=== PATIENT | male | born 1955 | race Caucasian/White ===

== ENCOUNTER 2018-09-20 08:02 | Day surgery (SDC) | payer OTHER ==
[2018-09-13 12:53] VITALS: BMI 27.6
[2018-09-20 10:30] VITALS: TEMP 97.8
[2018-09-20 10:31] VITALS: BP 121/64; PULSE 68
== END 2018-09-20 10:39 | disposition home or self-care (01) ==
LOC: FASU-ENDO 08:02
PROVIDERS: ATTEND Internal Medicine Gastroenterology
PROC: 0DJD8ZZ Inspection of Lower Intestinal Tract, Via Natural or Artificial Opening Endoscopic (ICD-10-PCS; principal; 2018-09-20 09:15)
DX: Z86.010 Personal history of colon polyps (principal); Z80.0 Family history of malignant neoplasm of digestive organs; K57.30 Diverticulosis of large intestine without perforation or abscess without bleeding

== ENCOUNTER 2022-08-28 16:01 | Emergency (ER) | payer OTHER ==
[2022-08-28 16:14] VITALS: BP 155/78; PULSE 64; RESP 18; TEMP 98.3
[2022-08-28 16:16] VITALS: BMI 26.9
== END 2022-08-28 17:51 | disposition home or self-care (01) ==
LOC: FER 16:01
DX: S52.022A Displaced fracture of olecranon process without intraarticular extension of left ulna, initial encounter for closed fracture (principal)
CPT/HCPCS: 73070-TC-LT-FY; 73110-TC-LT-FY; 99284-25

== ENCOUNTER 2023-07-17 07:53 | Day surgery (SDC) | payer OTHER ==
[2023-07-13 15:19] VITALS: BMI 28.5
[2023-07-17] MEDS ORDERED: LIDOCAINE HCL/PF 2% SDV 5ML VIAL ONE (08:05)
[2023-07-17] MEDS ORDERED: PROPOFOL 160 ML ONE (08:06)
[2023-07-17 08:10] VITALS: RESP 18
[2023-07-17 09:21] VITALS: TEMP 96.9
[2023-07-17 09:35] VITALS: BP 114/52; PULSE 68
== END 2023-07-17 09:45 | disposition home or self-care (01) ==
LOC: FASU-ENDO 07:53
PROVIDERS: ATTEND Internal Medicine Gastroenterology
PROC: 0DBL8ZX Excision of Transverse Colon, Via Natural or Artificial Opening Endoscopic, Diagnostic (ICD-10-PCS; principal; 2023-07-17 08:43)
DX: Z12.11 Encounter for screening for malignant neoplasm of colon (principal); D12.3 Benign neoplasm of transverse colon; K57.30 Diverticulosis of large intestine without perforation or abscess without bleeding; Z86.010 Personal history of colon polyps
CPT/HCPCS: 88305-TC